=== PATIENT | male | born 1980 | race Two or more races ===

== ENCOUNTER 2024-06-03 08:32 | Emergency (ER) | payer MEDICAID, OTHER ==
[~2024-06-03] VITALS: Ht 170.2 cm; Wt 68.0 kg
[2024-06-03 08:40] VITALS: BP 112/74; PULSE 63; RESP 18; O2SAT 98
[2024-06-03 09:26] LABS: Basophils # (auto) 0.1 10 ^3/uL (0-0.2); Basophils % (auto) 1.2 % (0.0-2.0); Eosinophils # (auto) 0.1 10 ^3/uL (0-0.8); Hematocrit 43.3 % (41.0-53.0); Hemoglobin 14.8 g/dL (13.5-17.5); Lymphocytes # (auto) 2.2 10 ^3/uL (0.4-5.4); Lymphocytes % (auto) 33.6 % (10.0-50.0); Mean Corpuscular Hgb Conc. 34.3 g/dL (32.0-36.0); Mean Corpuscular Volume 96.3 fL (80.0-100.0); Monocytes # (auto) 0.4 10 ^3/uL (0-1.3); Monocytes % (auto) 5.9 % (0.0-12.0); Neutrophils # (auto) 3.8 10 ^3/uL (1.6-8.6); Neutrophils % (auto) 58.3 % (37.0-80.0); Nucleated Red Blood Cells % 0.1 %; Platelet Count (auto) 285 10^3/uL (140-450); Red Blood Cells 4.49 10^6/uL (4.5-5.90); Red Cell Distribution Width 13.7 % (11.8-14.3); White Blood Cell 6.5 10^3/uL (4.4-10.8)
[2024-06-03 09:32] LABS: Chloride 105 mmol/L (98-107); Potassium 3.8 mmol/L (3.5-5.1); Sodium 138 mmol/L (136-145)
[2024-06-03 09:33] LABS: Anion Gap 4 (5-15); Carbon Dioxide 29 mmol/L (20-31)
[2024-06-03 09:34] LABS: Calcium 9.4 mg/dL (8.7-10.4)
[2024-06-03 09:38] LABS: Glucose 87 mg/dL (74-106)
[2024-06-03 09:39] LABS: BUN/Creatinine Ratio 8.9 (10.0-20.0); Blood Alcohol < 3.0 mg/dL (<10); Blood Urea Nitrogen 8 mg/dL (9-23)
[2024-06-03 11:24] LABS: Acetaminophen < 2.0 UG/ML (10.0-20.0)
[2024-06-03 11:25] LABS: Salicylate < 3.0 mg/dL (-30)
== END 2024-06-03 17:27 | disposition left against medical advice (07) ==
LOC: EDBD 08:32 → ER 08:32
DX: F22 Delusional disorders (principal); W57.XXXA Bitten or stung by nonvenomous insect and other nonvenomous arthropods, initial encounter; Y93.89 Activity, other specified; Y92.89 Other specified places as the place of occurrence of the external cause; Y99.8 Other external cause status
CPT/HCPCS: 36415; 80048; 80320; 80329; 85025